=== PATIENT | male | born 1985 | race Caucasian/White ===

== ENCOUNTER 2018-04-24 18:30 | Emergency (ER) | payer MEDICAID ==
[~2018-04-24] VITALS: Ht 180.3 cm; Wt 117.9 kg
[2018-04-24 18:58] VITALS: BP 118/94
== END 2018-04-24 23:46 | disposition left against medical advice (07) ==
LOC: ER 18:30
DX: M79.604 Pain in right leg (principal); Z53.21 Procedure and treatment not carried out due to patient leaving prior to being seen by health care provider; V43.92XA Unspecified car occupant injured in collision with other type car in traffic accident, initial encounter; Y93.89 Activity, other specified; Y99.8 Other external cause status; Y92.89 Other specified places as the place of occurrence of the external cause
CPT/HCPCS: 73562